=== PATIENT | female | born 1975 | race Caucasian/White ===

== ENCOUNTER 2018-10-02 11:32 | Inpatient (IN) | payer OTHER ==
[2018-10-02 12:44] VITALS: BMI 30.3
--- NOTE | 2018-10-02 14:29 | HP ---
CIWA Score Nausea/Vomitin-Mild Nausea/No Vomiting Muscle Tremors: 3 Anxiety: 2 Agitation: 1-Slight > Activity Paroxysmal Sweats: 1-Minimal Palms Moist Orientation: 1-Uncertain about Date Tacttile Disturbances: 0-None Auditory Disturbances: 0-None Visual Disturbances: 0-None Headache: 3-Moderate CIWA-Ar Total Score: 12 - Admission Criteria OASAS Guidelines: Admission for Medically Managed Detox: Requires at least one of the followin. CIWA greater than 12 2. Seizures within the past 24 hours 3. Delirium tremens within the past 24 hours 4. Hallucinations within the past 24 hours 5. Acute intervention needed for co occurring medical disorder 6. Acute intervention needed for co occurring psychiatric disorder 7. Severe withdrawal that cannot be handled at a lower level of care (continued vomiting, continued diarrhea, abnormal vital signs) requiring intravenous medication and/or fluids 8. Admission ROS [facility] Chief Complaint: detox from alcohol Allergies/Adverse Reactions: Allergies Allergy/AdvReac Type Severity Reaction Status Date / Time No Known Allergies Allergy Verified 10/02/18 12:43 History of Present Illness: Ms. Palumbo is a 43yo female with PMH opioid use on methadone, hepatitis C not on tx, cirrhosis, and bipolar disorder who presents for detox from alcohol. She reports having her last drink at 4am today. She normally drinks 3 large cans of beer daily. She endorsed past ETOH withdrawal seizures but no hx of blackouts. Her longest time in sobriety is 6 months. She has not attended group therapy or AA meetings in the past. She wants to be treated for alcohol use because she knows her cirrhosis is being made worse by alcohol use. She endorses heroin use with last time day before yesterday. She uses 3-4 bags daily. She uses by inhalation and IV use. She injects into right UE and neck. She currently is in a methadone program on [facility] in [place]. She is on 60mg/daily with last dose today. She reports previous rehab at [facility]. Exam Limitations: Intoxication - Ebola screening Have you traveled outside of the country in the last 21 days: No Have you had contact with anyone from an Ebola affected area: No Have you been sick,other than usual withdrawal symptoms: No Do you have a fever: No - Review of Systems Constitutional: Chills, Fever EENT: reports: No Symptoms Reported Respiratory: reports: No Symptoms reported Cardiac: reports: No Symptoms Reported GI: reports: No Symptoms Reported, Nausea : reports: No Symptoms Reported Musculoskeletal: reports: Muscle Pain Integumentary: reports: No Symptoms Reported Neuro: reports: No Symptoms reported Endocrine: reports: No Symptoms Reported Hematology: reports: No Symptoms Reported Psychiatric: reports: Judgement Intact, Disorientated Patient History - Patient Medical History Hx Liver Disease: Yes (cirrhosis) Hx Hepatitis C: Yes (not treated) Hx Bipolar Disorder: Yes - Patient Surgical History Past Surgical History: No - PPD History Documented Results: Negative w/o proof PPD to be Administered?: Yes - Reproductive History Patient is a Female of Child Bearing Age (11 -55 yrs old): Yes Patient : No - Smoking Cessation Smoking history: Current every day smoker Have you smoked in the past 12 months: Yes Aproximately how many cigarettes per day: 10 Initiated information on smoking cessation: Yes 'Breaking Loose' booklet given: 10/02/18 - Substance & Tx. History Hx Alcohol Use: Yes Hx Substance Use: Yes Substance Use Type: Alcohol, Heroin, Opiates Hx Substance Use Treatment: Yes ([facility]) - Substances abused Alcohol Substance route: Oral Frequency: Daily Amount used: 3 large cans of beer Age of first use: 38 Date of last use: 10/02/18 Heroin Substance route: Inhalation (and injection) Frequency: Daily Amount used: 3-4 bags Date of last use: 09/30/18 Cocaine Substance route: Injection Frequency: 1-3 times last 30 days Amount used: 2 bags Family Disease History - Family Disease History Family History: Denies Admission Physical Exam [facility] - Vital Signs Vital Signs: Vital Signs - 24 hr 10/02/18 12:31 Temperature 97.2 F L Pulse Rate 70 Respiratory 18 Rate Blood Pressure 111/74 - Physical General Appearance: Yes: Disheveled, Alcohol on Breath, Intoxicated HEENTM: Yes: Hearing grossly Normal, OSVALDO Respiratory: Yes: Lungs Clear Neck: Yes: Within Normal Limits Cardiology: Yes: Regular Rhythm, Regular Rate Abdominal: Yes: Normal Bowel Sounds, Non Tender Musculoskeletal: Yes: full range of Motion Extremities: Yes: Normal Range of Motion Neurological: Yes: Alert, Motor Strength 5/5 Integumentary: Yes: Track Reyes Cleared for Admission [facility] - Detox or Rehab [facility] Level of Care: Medically Managed Detox Regimen/Protocol: Librium Breathalyzer - Breathalyzer Breathalyzer: 0.088 Urine Drug Screen - Test Device Lot number: [id number] Expiration date: 07/03/20 - Control Is test valid?: Yes - Results Drug screen NEGATIVE: No Urine drug screen results: FEN-Fentanyl, MOP-Opiates, OXY-Oxycodone, MTD- Methadone, BZO-Benzodiazepines Inpatient Rehab Admission - Rehab Decision to Admit Inpatient rehab admission?: No
[2018-10-02] MEDS ORDERED: LORazepam 1 MG TABLET PO PRN (15:00)
--- NOTE | 2018-10-02 15:00 | PN ---
Teaching Attending Note Name of Resident: Cassi Coffey ATTENDING PHYSICIAN STATEMENT I saw and evaluated the patient. I reviewed the resident's note and discussed the case with the resident. I agree with the resident's findings and plan as documented. SUBJECTIVE: 44 yo HCV pos here for alcohol detox, drinks large 3 cans of beer/ day. h/o cirrhosis, past admission for paracentesis. No h/o seizures, Also uses heroin IV 3-4 bags/day. On MAT methadone, 60mg/day. Uses IV cocaine. Has had previous admissions for detox/rehab. Pt does not have a PCP. Lives with boyfriend. Does not work. OBJECTIVE: Vital Signs - 24 hr 10/02/18 12:31 Temperature 97.2 F L Pulse Rate 70 Respiratory 18 Rate Blood Pressure 111/[address] delgado tremulous ASSESSMENT AND PLAN: AUD- start detox protocol with ativan MAT methadone need to verify pt with cirrhosis monitor
[2018-10-02] MEDS ORDERED: IBUPROFEN 400 MG TABLET (FP) PO PRN (15:01)
[2018-10-02] MEDS ORDERED: MELATONIN 5 MG TABLETS PO PRN (15:01)
[2018-10-02] MEDS ORDERED: hydrOXYzine HCL 25 MG TABLET (FP) PO PRN (15:01)
[2018-10-02] MEDS ORDERED: MAG HYDROX/AL HYDROX/SIMETH 30 ML UNIT-DOSE CUP PO PRN (15:01)
[2018-10-02] MEDS ORDERED: METHOCARBAMOL 500 MG TABLET PO PRN (15:01)
[2018-10-02] MEDS ORDERED: MAGNESIUM CITRATE 300 ML BOTTLE PO PRN (15:01)
[2018-10-02] MEDS ORDERED: MAGNESIUM HYDROX 2400MG/30ML ORAL SUSPENSION 30 ML CUP PO PRN (15:01)
[2018-10-02] MEDS ORDERED: MENTHOL/PHENOL 1 EACH UD MM PRN (15:01)
[2018-10-02] MEDS ORDERED: BISMUTH SUBSALICYLATE 524 MG/30 ML UD PO PRN (15:01)
[2018-10-02] MEDS: NICOTINE 14 MG/24 HOURS TOPICAL PATCH TD SCH (19:11)
[2018-10-02] MEDS: THIAMINE HCL 100 MG TABLET (FP) PO SCH (22:15)
[2018-10-02] MEDS: LORazepam 2 MG TABLET PO SCH (22:15)
[2018-10-03] MEDS ORDERED: METHADONE HCL 40 MG DISPERSABLE TABLET ONE (05:15)
[2018-10-03] MEDS ORDERED: METHADONE HCL 10 MG TABLET ONE (05:15)
[2018-10-03] MEDS ORDERED: METHADONE HCL 10 MG TABLET PO SCH (06:00)
[2018-10-03] MEDS: METHADONE 40 MG, METHADONE 20 MG PO SCH (06:09)
[2018-10-03] MEDS: LORazepam 2 MG TABLET PO SCH ×4 (06:09→22:12)
[2018-10-03] MEDS: PRENATAL VITAMINS W/ FOLIC ACID TABLET (FP) PO SCH (10:24)
[2018-10-03] MEDS: NICOTINE 14 MG/24 HOURS TOPICAL PATCH TD SCH (10:24)
[2018-10-03 10:29] LABS: HEMATOCRIT 34.9 % (32.4-45.2); HEMOGLOBIN 11.5 GM/dL (10.7-15.3); MCH 29.7 pg (25.7-33.7); MCHC 33.1 g/dl (32.0-36.0); MEAN CELL VOLUME 89.9 fl (80-96); MEAN PLT VOLUME 9.4 fl (7.5-11.1); PLATELET COUNT 71 K/MM3 (134-434); RBC 3.89 M/mm3 (3.60-5.2); RDW 15.8 % (11.6-15.6); WHITE BLOOD COUNT 3.6 K/mm3 (4.0-10.0)
--- NOTE | 2018-10-03 10:33 | PN ---
[facility] CIWA - CIWA Score Nausea/Vomitin-Mild Nausea/No Vomiting Muscle Tremors: 2 Anxiety: 1-Mildly Anxious Agitation: 1-Slight > Activity Paroxysmal Sweats: No Perspiration Orientation: 0-Oriented Tacttile Disturbances: 0-None Auditory Disturbances: 0-None Visual Disturbances: 0-None Headache: 1-Very Mild CIWA-Ar Total Score: 6 [facility] Progress Note (SOAP) Subjective: Pt here for alcohol detox, on methadone MAT. No complaints this morning. O: Vital Signs - 24 hr 10/02/18 10/02/18 10/02/18 12:31 17:32 21:05 Temperature 97.2 F L 98.2 F 99.8 F H Pulse Rate 70 73 78 Respiratory 18 18 16 Rate Blood Pressure 111/74 104/65 119/76 10/03/18 10/03/18 10/03/18 00:45 04:24 06:14 Temperature 98.3 F Pulse Rate 71 Respiratory 18 18 16 Rate Blood Pressure 114/75 10/03/18 09:26 Temperature 98.7 F Pulse Rate 71 Respiratory 18 Rate Blood Pressure 119/76 labs pending a/p: continue detox protocol with ativan- pt gives h/o cirrhosis doing well here continue MAT methadone 60mg/day
[2018-10-03 10:35] LABS: ALBUMIN 2.9 g/dl (3.4-5.0); BILIRUBIN,TOTAL 1.6 mg/dL (0.2-1); BLOOD UREA NITROGEN 8.4 mg/dL (7-18); CALCIUM 8.6 mg/dL (8.5-10.1); CREATININE 0.6 mg/dL (0.55-1.3); POTASSIUM 3.9 mmol/L (3.5-5.1); TOT PROT 7.2 g/dl (6.4-8.2)
--- NOTE | 2018-10-03 12:30 | CONSULT ---
[facility] Psychiatric Consult - Data Date of interview: 10/03/18 Admission source: [facility] Identifying data: First admission to [facility] for this 43 y/o [facility] self-referred for detoxifocation (alcohol, opioid). Interviewed at [place]. Patient is single, a mother of five, domiciled, unemployed and dependent on common-law spouse for financial support. Substance Abuse History: Confirmed by patient in this session. Details in current [facility] report as follows : Smoking history: Current every day smoker. Have you smoked in the past 12 months: Yes. Aproximately how many cigarettes per day: 10. Initiated information on smoking cessation: Yes. 'Breaking Loose ' booklet given: 10/02/18. - Substance & Tx. History. Hx Alcohol Use: Yes. Hx Substance Use: Yes. Substance Use Type: Alcohol, Heroin, Opiates. Hx Substance Use Treatment: Yes ([facility]). - Substances abused. Alcohol. Substance route: Oral. Frequency: Daily. Amount used: 3 large cans of beer. Age of first use: 38. Date of last use: 10/02/18. Heroin. Substance route : Inhalation (and injection). Frequency: Daily. Amount used: 3-4 bags. Date of last use: 09/30/18. Cocaine. Substance route: Injection. Frequency: 1- 3 times last 30 days. Amount used: 2 bags Medical History: Medical profile is remarkable for hepatitis C and liver cirrhosis. Psychiatric History: Patient denies history of mental illness with the exception of substance use disorders. Denies history of suicide attempts. Ms Palumbo is currently on methadone maintenance (60 mg/day) at a program in [facility]. Physical/Sexual Abuse/Trauma History: Patient denies history of abuse. Additional Comment: Urine drug screen results: FEN-Fentanyl, MOP-Opiates, OXY- Oxycodone, MTD-Methadone, BZO-Benzodiazepines. Noted. Mental Status Exam - Mental Status Exam Alert and Oriented to: Time, Place, Person Cognitive Function: Good Patient Appearance: Unkempt, Disheveled (edentulous) Mood: Nervous, Withdrawn Affect: Mood Congruent, Constricted Patient Behavior: Fatigued, Appropriate, Cooperative Speech Pattern: Clear (fluent in british + greenlandic) Voice Loudness: Normal Thought Process: Goal Oriented Thought Disorder: Not Present Hallucinations: Denies Suicidal Ideation: Denies Homicidal Ideation: Denies Insight/Judgement: Poor Sleep: Fair Appetite: Fair Gait/Station: Normal Psychiatric Findings - Problem List ([place] 1, 2,3) (1) Opioid dependence on agonist therapy Current Visit: Yes Status: Chronic (2) Alcohol use disorder Current Visit: Yes Status: Chronic (3) Nicotine dependence Current Visit: Yes Status: Chronic (4) Substance induced mood disorder Current Visit: Yes Status: Suspected - Initial Treatment Plan Initial Treatment Plan: Psychoeducation. Sleep hygiene. Detoxification. AA/NA meetings. Support. Observation.
[2018-10-03] MEDS: THIAMINE HCL 100 MG TABLET (FP) PO SCH (22:12)
[2018-10-04] MEDS ORDERED: METHADONE HCL 10 MG TABLET ONE (05:47)
[2018-10-04] MEDS ORDERED: METHADONE HCL 40 MG DISPERSABLE TABLET ONE (05:48)
[2018-10-04] MEDS: METHADONE 40 MG, METHADONE 20 MG PO SCH (05:50)
[2018-10-04] MEDS: LORazepam 1 MG TABLET PO SCH ×4 (05:50→22:13)
[2018-10-04] MEDS: PRENATAL VITAMINS W/ FOLIC ACID TABLET (FP) PO SCH (10:30)
[2018-10-04] MEDS: NICOTINE 14 MG/24 HOURS TOPICAL PATCH TD SCH (10:30)
--- NOTE | 2018-10-04 12:00 | PN ---
[facility] CIWA - CIWA Score Nausea/Vomitin-No Nausea/No Vomiting Muscle Tremors: 1-None Visible, but [place] Anxiety: 1-Mildly Anxious Agitation: 1-Slight > Activity Paroxysmal Sweats: No Perspiration Orientation: 0-Oriented Tacttile Disturbances: 0-None Auditory Disturbances: 0-None Visual Disturbances: 0-None Headache: 0-None Present CIWA-Ar Total Score: 3 S Progress Note (SOAP) Subjective: doing well with ativan detox regimen social with peers hesitate to discuss aftercare with staff Objective: 10/04/18 12:05 Vital Signs Temperature 98.4 F 10/04/18 09:12 Pulse Rate 69 10/04/18 09:12 Respiratory Rate 18 10/04/18 09:12 Blood Pressure 104/63 10/04/18 09:12 O2 Sat by Pulse Oximetry (%) Laboratory Last Values WBC 3.6 K/mm3 (4.0-10.0) L 10/03/18 07:30 RBC 3.89 M/mm3 (3.60-5.2) 10/03/18 07:30 Hgb 11.5 GM/dL (10.7-15.3) 10/03/18 07:30 Hct 34.9 % (32.4-45.2) 10/03/18 07:30 MCV 89.9 fl (80-96) 10/03/18 07:30 MCH 29.7 pg (25.7-33.7) 10/03/18 07:30 MCHC 33.1 g/dl (32.0-36.0) 10/03/18 07:30 RDW 15.8 % (11.6-15.6) H 10/03/18 07:30 Plt Count 71 K/MM3 (134-434) L 10/03/18 07:30 MPV 9.4 fl (7.5-11.1) 10/03/18 07:30 Sodium 140 mmol/L (136-145) 10/03/18 07:30 Potassium 3.9 mmol/L (3.5-5.1) 10/03/18 07:30 Chloride 108 mmol/L (98-107) H 10/03/18 07:30 Carbon Dioxide 26 mmol/L (21-32) 10/03/18 07:30 Anion Gap 6 MMOL/L (8-16) L 10/03/18 07:30 BUN 8.4 mg/dL (7-18) 10/03/18 07:30 Creatinine 0.6 mg/dL (0.55-1.3) 10/03/18 07:30 Est GFR (CKD-EPI)AfAm 128.48 10/03/18 07:30 Est GFR (CKD-EPI)NonAf 110.86 10/03/18 07:30 Random Glucose 119 mg/dL (74-106) H 10/03/18 07:30 Calcium 8.6 mg/dL (8.5-10.1) 10/03/18 07:30 Total Bilirubin 1.6 mg/dL (0.2-1) H 10/03/18 07:30 AST 26 U/L (15-37) 10/03/18 07:30 ALT 18 U/L (13-61) 10/03/18 07:30 Alkaline Phosphatase 181 U/L (45-117) H 10/03/18 07:30 Total Protein 7.2 g/dl (6.4-8.2) 10/03/18 07:30 Albumin 2.9 g/dl (3.4-5.0) L 10/03/18 07:30 POC Urine HCG, Qual Negative 10/02/18 13:29 RPR Titer Nonreactive (NONREACTIVE) 10/03/18 07:30 discontinue motrin lab noted 10/04/18 12:06 Assessment: 10/04/18 12:15 alcohol withdrawal sx Plan: continue alcohol detox
[2018-10-04] MEDS: THIAMINE HCL 100 MG TABLET (FP) PO SCH (22:13)
[2018-10-05] MEDS ORDERED: LORazepam 0.5 MG TABLET PO PRN
[2018-10-05] MEDS ORDERED: METHADONE HCL 10 MG TABLET ONE (04:51)
[2018-10-05] MEDS ORDERED: METHADONE HCL 40 MG DISPERSABLE TABLET ONE (04:52)
[2018-10-05] MEDS: METHADONE 40 MG, METHADONE 20 MG PO SCH (06:02)
[2018-10-05] MEDS: LORazepam 0.5 MG TABLET PO SCH ×4 (06:03→22:15)
[2018-10-05] MEDS: PRENATAL VITAMINS W/ FOLIC ACID TABLET (FP) PO SCH (10:25)
[2018-10-05] MEDS: NICOTINE 14 MG/24 HOURS TOPICAL PATCH TD SCH (10:26)
--- NOTE | 2018-10-05 16:10 | PN ---
[facility] CIWA - CIWA Score Nausea/Vomitin-No Nausea/No Vomiting Muscle Tremors: None Anxiety: 0-No Anxiety, at Ease Agitation: 2 Paroxysmal Sweats: No Perspiration Orientation: 2-Disoriented Date<2 days Tacttile Disturbances: 0-None Auditory Disturbances: 0-None Visual Disturbances: 0-None Headache: 0-None Present CIWA-Ar Total Score: 4 S Progress Note (SOAP) Subjective: Patient denies current Withdrawal / Detox symptoms and reports that he feels well overall at this time. Objective: PATIENT A & O X 2 (UNCERTAIN ABOUT CURRENT DAY / DATE). PATIENT OBSERVED AMBULATING ON UNIT UNASSISTED. IN NO ACUTE DISTRESS. 10/05/18 16:07 Vital Signs Temperature 98.5 F 10/05/18 13:19 Pulse Rate 66 10/05/18 13:19 Respiratory Rate 18 10/05/18 13:19 Blood Pressure 129/85 10/05/18 13:19 O2 Sat by Pulse Oximetry (%) Laboratory Tests 10/02/18 10/03/18 10/03/18 13:29 07:30 07:30 WBC 3.6 L RBC 3.89 Hgb 11.5 Hct 34.9 MCV 89.9 MCH 29.7 MCHC 33.1 RDW 15.8 H Plt Count 71 L MPV 9.4 Sodium 140 Potassium 3.9 Chloride 108 H Carbon Dioxide 26 Anion Gap 6 L BUN 8.4 Creatinine 0.6 Est GFR (CKD-EPI)AfAm 128.48 Est GFR (CKD-EPI)NonAf 110.86 Random Glucose 119 H Calcium 8.6 Total Bilirubin 1.6 H AST 26 ALT 18 Alkaline Phosphatase 181 H Total Protein 7.2 Albumin 2.9 L POC Urine HCG, Qual Negative RPR Titer 10/03/18 07:30 WBC RBC Hgb Hct MCV MCH MCHC RDW Plt Count MPV Sodium Potassium Chloride Carbon Dioxide Anion Gap BUN Creatinine Est GFR (CKD-EPI)AfAm Est GFR (CKD-EPI)NonAf Random Glucose Calcium Total Bilirubin AST ALT Alkaline Phosphatase Total Protein Albumin POC Urine HCG, Qual RPR Titer Nonreactive LABS NOTED. RESULTS OF DETOX ADMISSION QFT /TB TEST PENDING. 10/05/18 16:08 Assessment: 10/05/18 16:08 WITHDRAWAL SYMPTOMS. LEUKOPENIA. THROMBOCYTOPENIA. HYPERBILIRUBINEMIA. ELEVATED ALAKALINE PHOSPHATASE LEVEL. 10/05/18 16:09 Plan: CONTINUE DETOX. PATIENT SCHEDULED FOR D/C FROM DETOX UNIT TOMORROW.
[2018-10-05] MEDS: THIAMINE HCL 100 MG TABLET (FP) PO SCH (22:14)
[2018-10-06] MEDS ORDERED: LORazepam 0.5 MG TABLET PO ONE (05:00)
[2018-10-06] MEDS ORDERED: METHADONE HCL 10 MG TABLET ONE (05:17)
[2018-10-06] MEDS ORDERED: METHADONE HCL 40 MG DISPERSABLE TABLET ONE (05:18)
[2018-10-06] MEDS: METHADONE 40 MG, METHADONE 20 MG PO SCH (05:39)
[2018-10-06 09:56] VITALS: BP 110/81; PULSE 73; TEMP 97.1
--- NOTE | 2018-10-06 15:28 | DS ---
[facility] Detox Discharge Summary Admission Date: 10/02/18 Discharge Date: 10/06/18 - History Present History: Alcohol Dependence, Opioid Dependence, MMTP Additional Comments: PATIENT WILL RETURN HOME FOR WEEKEND AND THEN WILL INQUIRE ABOUT APPLYING FOR ADMISSION AT [facility] ([place], [place]) ON 10/08/2018. PATIENT WAS DISCHARGED FORM DETOX UNIT IN STABLE MEDICAL CONDITION. Pertinent Past History: Nicotine Dependence, Leukopenia, Thrombocytopenia, M.M.T.P., History Of Cirrhosis Of Liver, Bipolar Disorder, Hyperbilirubinemia, Elevated Alkaline Phosphatase Level. - Physical Exam Results Vital Signs: Vital Signs Temperature 97.1 F L 10/06/18 09:00 Pulse Rate 73 10/06/18 09:00 Respiratory Rate 16 10/06/18 09:00 Blood Pressure 110/81 10/06/18 09:00 O2 Sat by Pulse Oximetry (%) Pertinent Admission Physical Exam Findings: WITHDRAWAL SYMPTOMS. Laboratory Tests 10/02/18 10/03/18 10/03/18 13:29 07:30 07:30 WBC 3.6 L RBC 3.89 Hgb 11.5 Hct 34.9 MCV 89.9 MCH 29.7 MCHC 33.1 RDW 15.8 H Plt Count 71 L MPV 9.4 Sodium 140 Potassium 3.9 Chloride 108 H Carbon Dioxide 26 Anion Gap 6 L BUN 8.4 Creatinine 0.6 Est GFR (CKD-EPI)AfAm 128.48 Est GFR (CKD-EPI)NonAf 110.86 Random Glucose 119 H Calcium 8.6 Total Bilirubin 1.6 H AST 26 ALT 18 Alkaline Phosphatase 181 H Total Protein 7.2 Albumin 2.9 L POC Urine HCG, Qual Negative RPR Titer TB (QFT) Incubation TB Test (QFT) Nil TB Test (QFT) Mitogen TB Test (QFT) Antigen TB Test (QFT) TB Positive Criteria 10/03/18 10/03/18 07:30 07:30 WBC RBC Hgb Hct MCV MCH MCHC RDW Plt Count MPV Sodium Potassium Chloride Carbon Dioxide Anion Gap BUN Creatinine Est GFR (CKD-EPI)AfAm Est GFR (CKD-EPI)NonAf Random Glucose Calcium Total Bilirubin AST ALT Alkaline Phosphatase Total Protein Albumin POC Urine HCG, Qual RPR Titer Nonreactive TB (QFT) Incubation TB Test (QFT) Nil 0.13 TB Test (QFT) Mitogen 4.09 TB Test (QFT) Antigen 0.23 TB Test (QFT) Negative TB Positive Criteria LABS NOTED. - Treatment Hospital Course: Detox Protocol Followed, Detoxed Safely, Responded well, Discharged Condition Good Patient has Accepted a Rehab Referral to: PT. WILL APPLY FOR ADMISSION AT [facility] IN NEXT FEW DAYS. - Medication Discharge Medications: Ambulatory Orders NK [No Known Home Medication] 10/02/18 - Diagnosis (1) Elevated alkaline phosphatase level Status: Acute (2) Hyperbilirubinemia Status: Acute (3) Leukopenia Status: Acute Qualifiers: Leukopenia type: unspecified Qualified Code(s): D72.819 - Decreased white blood cell count, unspecified (4) Thrombocytopenia Status: Acute (5) Alcohol use disorder Status: Acute (6) Nicotine dependence Status: Chronic Qualifiers: Nicotine product type: cigarettes Substance use status: uncomplicated Qualified Code(s): F17.210 - Nicotine dependence, cigarettes, uncomplicated (7) Opioid dependence on agonist therapy Status: Chronic (8) Substance induced mood disorder Status: Suspected - AMA Did Patient Leave Against Medical Advice: No
== END 2018-10-06 09:37 | disposition home or self-care (01) | DRG 773 ==
LOC: YASAS 11:32 → Y3N 15:31
PROVIDERS: ADMIT Surgery; ATTEND Surgery
PROC: HZ2ZZZZ Detoxification Services for Substance Abuse Treatment (ICD-10-PCS; principal; 2018-10-02)
DX: F10.230 Alcohol dependence with withdrawal, uncomplicated (principal); F11.20 Opioid dependence, uncomplicated; F17.210 Nicotine dependence, cigarettes, uncomplicated; F19.24 Other psychoactive substance dependence with psychoactive substance-induced mood disorder; E80.7 Disorder of bilirubin metabolism, unspecified; D72.819 Decreased white blood cell count, unspecified; D69.6 Thrombocytopenia, unspecified; R74.8 Abnormal levels of other serum enzymes; K74.60 Unspecified cirrhosis of liver; B18.2 Chronic viral hepatitis C
CPT/HCPCS: 36415; 80053; 81025; 85027; 86480; 86593

== ENCOUNTER 2020-03-27 19:28 | Inpatient (IN) | payer OTHER ==
[2020-03-27 22:28] VITALS: BMI 32.8
[2020-03-27] MEDS ORDERED: LOPERAMIDE HCL 2 MG CAPSULE PO PRN (23:35)
[2020-03-27] MEDS ORDERED: guaiFENesin 200 MG/10 ML 10 ML UNIT-DOSE CUPS PO PRN (23:35)
[2020-03-27] MEDS ORDERED: P-EPHED 60MG/TRIPROLIDI 2.5MG TABLET PO PRN (23:35)
[2020-03-27] MEDS ORDERED: NICOTINE POLACRILEX 2 MG GUM BC PRN (23:35)
[2020-03-27] MEDS ORDERED: ACETAMINOPHEN 325 MG TABLET (FP) PO PRN (23:35)
[2020-03-27] MEDS ORDERED: MAGNESIUM CITRATE 300 ML BOTTLE PO PRN (23:35)
[2020-03-27] MEDS ORDERED: MAGNESIUM HYDROX 2400MG/30ML ORAL SUSPENSION 30 ML CUP PO PRN (23:35)
[2020-03-27] MEDS ORDERED: IBUPROFEN 400 MG TABLET (FP) PO PRN (23:35)
[2020-03-27] MEDS ORDERED: MAG HYDROX/AL HYDROX/SIMETH 30 ML UNIT-DOSE CUP PO PRN (23:35)
[2020-03-27] MEDS ORDERED: QUEtiapine FUMARATE 100 MG TABLET (FP) PO ONE (23:43)
[2020-03-28] MEDS ORDERED: METHADONE HCL 40 MG DISPERSABLE TABLET PO SCH (09:30)
[2020-03-28] MEDS ORDERED: METHADONE HCL 40 MG DISPERSABLE TABLET ONE (10:01)
[2020-03-28] MEDS ORDERED: METHADONE HCL 10 MG TABLET ONE (10:02)
[2020-03-28] MEDS: NICOTINE 7 MG/24 HOURS TOPICAL PATCH TD SCH (10:02)
[2020-03-28] MEDS: PRENATAL VITAMINS W/ FOLIC ACID TABLET (FP) PO SCH (10:02)
[2020-03-28] MEDS ORDERED: METHADONE HCL 5 MG TABLET ONE (10:02)
[2020-03-28] MEDS: METHADONE 80 MG, METHADONE 10 MG, METHADONE 5 MG PO SCH (10:03)
[2020-03-28] MEDS: PANTOPRAZOLE 40 MG TABLET PO SCH (10:03)
[2020-03-28 13:32] LABS: POTASSIUM 3.8 mmol/L (3.5-5.1)
[2020-03-28 13:35] LABS: HEMATOCRIT 35.7 % (32.4-45.2); HEMOGLOBIN 12.1 GM/dL (10.7-15.3); MCH 31.2 pg (25.7-33.7); MCHC 33.8 g/dl (32.0-36.0); MEAN CELL VOLUME 92.6 fl (80-96); PLATELET COUNT 66 K/MM3 (134-434); RBC 3.86 M/mm3 (3.60-5.2); RDW 16.7 % (11.6-15.6); WHITE BLOOD COUNT 4.3 K/mm3 (4.0-10.0)
[2020-03-28 13:38] LABS: CALCIUM 8.7 mg/dL (8.5-10.1)
[2020-03-28 13:39] LABS: BLOOD UREA NITROGEN 13.7 mg/dL (7-18); CREATININE 0.4 mg/dL (0.55-1.3)
[2020-03-28 13:40] LABS: ALBUMIN 2.7 g/dl (3.4-5.0)
[2020-03-28 13:41] LABS: BILIRUBIN,TOTAL 0.9 mg/dL (0.2-1); TOT PROT 7.1 g/dl (6.4-8.2)
[2020-03-28 13:48] LABS: PH,URINE 7.5 (5.0-8.0); URINE APPEARANCE CLOUDY; URINE BILIRUBIN NEGATIVE (NEGATIVE); URINE COLOR YELLOW; URINE GLUCOSE (UA) NEGATIVE (NEGATIVE); URINE KETONE NEGATIVE (NEGATIVE); URINE LEUK ESTERASE NEGATIVE (NEGATIVE); URINE NITRITE NEGATIVE (NEGATIVE); URINE PROTEIN NEGATIVE (NEGATIVE)
[2020-03-28] MEDS: THIAMINE HCL 100 MG TABLET (FP) PO SCH (21:31)
[2020-03-28] MEDS ORDERED: QUEtiapine FUMARATE 200 MG TABLET PO SCH (22:00)
[2020-03-29] MEDS ORDERED: METHADONE HCL 5 MG TABLET ONE ×2 (03:21→09:49)
[2020-03-29] MEDS ORDERED: METHADONE HCL 40 MG DISPERSABLE TABLET ONE ×2 (03:21→09:49)
[2020-03-29] MEDS ORDERED: METHADONE HCL 10 MG TABLET ONE ×2 (03:21→09:49)
[2020-03-29] MEDS: METHADONE 80 MG, METHADONE 10 MG, METHADONE 5 MG PO SCH ×2 (07:17→09:51)
[2020-03-29] MEDS: PANTOPRAZOLE 40 MG TABLET PO SCH (09:50)
[2020-03-29] MEDS: NICOTINE 7 MG/24 HOURS TOPICAL PATCH TD SCH (09:50)
[2020-03-29] MEDS: PRENATAL VITAMINS W/ FOLIC ACID TABLET (FP) PO SCH (09:51)
[2020-03-29] MEDS: THIAMINE HCL 100 MG TABLET (FP) PO SCH (21:10)
[2020-03-29] MEDS ORDERED: QUEtiapine FUMARATE 100 MG TABLET (FP) PO SCH (22:00)
[2020-03-30] MEDS ORDERED: METHADONE HCL 40 MG DISPERSABLE TABLET ONE (09:43)
[2020-03-30] MEDS ORDERED: METHADONE HCL 5 MG TABLET ONE (09:44)
[2020-03-30] MEDS ORDERED: METHADONE HCL 10 MG TABLET ONE (09:44)
[2020-03-30] MEDS: METHADONE 80 MG, METHADONE 10 MG, METHADONE 5 MG PO SCH (09:48)
[2020-03-30] MEDS: PRENATAL VITAMINS W/ FOLIC ACID TABLET (FP) PO SCH (09:49)
[2020-03-30] MEDS: PANTOPRAZOLE 40 MG TABLET PO SCH (09:49)
[2020-03-30] MEDS: NICOTINE 7 MG/24 HOURS TOPICAL PATCH TD SCH (09:51)
[2020-03-30] MEDS: LACTULOSE 20 GM/30 ML UDC (FOR ORAL USE ONLY) PO SCH ×3 (14:28→21:47)
[2020-03-30] MEDS: THIAMINE HCL 100 MG TABLET (FP) PO SCH (21:47)
[2020-03-31] MEDS ORDERED: METHADONE HCL 5 MG TABLET ONE (08:44)
[2020-03-31] MEDS ORDERED: METHADONE HCL 40 MG DISPERSABLE TABLET ONE (08:44)
[2020-03-31] MEDS ORDERED: METHADONE HCL 10 MG TABLET ONE (08:44)
[2020-03-31] MEDS: PRENATAL VITAMINS W/ FOLIC ACID TABLET (FP) PO SCH (10:00)
[2020-03-31] MEDS: NICOTINE 7 MG/24 HOURS TOPICAL PATCH TD SCH (10:00)
[2020-03-31] MEDS: METHADONE 80 MG, METHADONE 10 MG, METHADONE 5 MG PO SCH (10:00)
[2020-03-31] MEDS: LACTULOSE 20 GM/30 ML UDC (FOR ORAL USE ONLY) PO SCH ×4 (10:00→21:13)
[2020-03-31] MEDS: PANTOPRAZOLE 40 MG TABLET PO SCH (10:42)
[2020-03-31 11:41] LABS: INR 1.39 (0.83-1.09); PROTHROMBIN TIME (PATIENT) 16.9 SEC (9.7-13.0)
[2020-03-31] MEDS: THIAMINE HCL 100 MG TABLET (FP) PO SCH (21:13)
[2020-03-31] MEDS: MELATONIN 5 MG TABLETS PO PRN (21:13)
[2020-04-01] MEDS ORDERED: METHADONE HCL 40 MG DISPERSABLE TABLET ONE (08:33)
[2020-04-01] MEDS ORDERED: METHADONE HCL 5 MG TABLET ONE (08:33)
[2020-04-01] MEDS ORDERED: METHADONE HCL 10 MG TABLET ONE (08:34)
[2020-04-01] MEDS: LACTULOSE 20 GM/30 ML UDC (FOR ORAL USE ONLY) PO SCH ×4 (09:49→21:30)
[2020-04-01] MEDS: PRENATAL VITAMINS W/ FOLIC ACID TABLET (FP) PO SCH (09:50)
[2020-04-01] MEDS: PANTOPRAZOLE 40 MG TABLET PO SCH (09:50)
[2020-04-01] MEDS: METHADONE 80 MG, METHADONE 10 MG, METHADONE 5 MG PO SCH (09:50)
[2020-04-01] MEDS: NICOTINE 7 MG/24 HOURS TOPICAL PATCH TD SCH (09:50)
[2020-04-01 20:42] VITALS: TEMP 98.2
[2020-04-01] MEDS: THIAMINE HCL 100 MG TABLET (FP) PO SCH (21:30)
[2020-04-01] MEDS: MELATONIN 5 MG TABLETS PO PRN (21:30)
[2020-04-02] MEDS ORDERED: METHADONE HCL 10 MG TABLET ONE (08:42)
[2020-04-02] MEDS ORDERED: METHADONE HCL 40 MG DISPERSABLE TABLET ONE (08:42)
[2020-04-02] MEDS ORDERED: METHADONE HCL 5 MG TABLET ONE (08:42)
[2020-04-02] MEDS: LACTULOSE 20 GM/30 ML UDC (FOR ORAL USE ONLY) PO SCH (09:52)
[2020-04-02] MEDS: PANTOPRAZOLE 40 MG TABLET PO SCH (09:52)
[2020-04-02] MEDS: METHADONE 80 MG, METHADONE 10 MG, METHADONE 5 MG PO SCH (09:52)
[2020-04-02] MEDS: NICOTINE 7 MG/24 HOURS TOPICAL PATCH TD SCH (09:53)
[2020-04-02] MEDS: PRENATAL VITAMINS W/ FOLIC ACID TABLET (FP) PO SCH (09:53)
[2020-04-02 10:11] VITALS: BP 129/84; PULSE 82
== END 2020-04-02 10:40 | disposition home or self-care (01) | DRG 772 ==
LOC: YASAS 19:28 → Y3W 23:04
PROVIDERS: ADMIT Allergy & Immunology; ATTEND Allergy & Immunology
PROC: HZ42ZZZ Group Counseling for Substance Abuse Treatment, Cognitive-Behavioral (ICD-10-PCS; principal; 2020-03-27)
DX: F10.20 Alcohol dependence, uncomplicated (principal); F11.20 Opioid dependence, uncomplicated; F17.210 Nicotine dependence, cigarettes, uncomplicated; F19.282 Other psychoactive substance dependence with psychoactive substance-induced sleep disorder; F19.24 Other psychoactive substance dependence with psychoactive substance-induced mood disorder; K21.9 Gastro-esophageal reflux disease without esophagitis; K74.60 Unspecified cirrhosis of liver; H91.91 Unspecified hearing loss, right ear; B18.2 Chronic viral hepatitis C; R94.31 Abnormal electrocardiogram [ECG] [EKG]; Z86.59 Personal history of other mental and behavioral disorders; Z91.5 Personal history of self-harm; Z04.3 Encounter for examination and observation following other accident; W22.8XXA Striking against or struck by other objects, initial encounter; Y92.238 Other place in hospital as the place of occurrence of the external cause; Y93.89 Activity, other specified; Y99.8 Other external cause status
CPT/HCPCS: 36415; 71046-TC-FY; 80053; 81003; 81025; 82140; 85027; 85610; 86780; 93005; 93010; C9803; U0003